=== PATIENT | female | born 1965 | race American Indian/Alaskan Native ===

== ENCOUNTER 2016-09-15 08:22 | Outpatient (CLI) | payer OTHER ==
--- NOTE | 2016-09-15 09:50 | Mammography Report ---
Bilateral mammogram: Compared to 09/14/15. CAD study utilized. Findings: There is adipose tissue tissue bilaterally. No mass or microcalcification. Benign calcification left breast. Impression: Benign findings. Annual followup recommended. BI-RADS CATEGORY: 2 = Benign ACR BI-RADS MAMMOGRAPHIC CODES: 0 = Needs additional imaging evaluation; 1 = Negative; 2 = Benign; 3 = Probably benign; 4 = Suspicious; 5 = Malignant; 6 = Known biopsy-proven malignancy COMMENT: 1. Dense breast tissue, i.e., adenosis, fibrocystic changes, etc., may obscure an underlying neoplasm. 2. Approximately 10% of cancers are not detected with mammography. 3. A negative mammography report should not delay biopsy if a clinically suspicious mass is present. COMMENT: Patient follow-up letters are generated in [employer].
== END 2016-09-15 08:23 | disposition home or self-care (01) ==
LOC: MAMMO 08:22
PROVIDERS: ATTEND Physician Assistant Medical
DX: Z12.31 Encounter for screening mammogram for malignant neoplasm of breast (principal)
CPT/HCPCS: 77067; G0202

== ENCOUNTER 2017-10-05 08:34 | Outpatient (CLI) | payer OTHER ==
--- NOTE | 2017-10-08 09:46 | Mammography Report ---
BILATERAL DIGITAL SCREENING MAMMOGRAM with CAD: 10/05/17 08:34:00 CLINICAL: Routine screening. COMPARISON:09/15/16 FINDINGS: The breasts are almost entirely fatty. No mass, architectural distortion or suspicious calcifications. IMPRESSION: No mammographic evidence of malignancy. BI-RADS CATEGORY: 1 - - Negative RECOMMENDATION: Routine mammographic screening in one year. COMMENT: Patient follow-up letters are generated by our [employer] application.
== END 2017-10-05 08:35 | disposition home or self-care (01) ==
LOC: MAMMO 08:34
PROVIDERS: ATTEND Physician Assistant Medical
DX: Z12.31 Encounter for screening mammogram for malignant neoplasm of breast (principal)
CPT/HCPCS: 77067

== ENCOUNTER 2020-11-08 08:15 | Outpatient (CLI) | payer OTHER ==
--- NOTE | 2020-11-08 10:45 | Mammography Report ---
BILATERAL DIGITAL DIAGNOSTIC MAMMOGRAM WITH CAD , 11/08/2020 LEFT LIMITED BREAST ULTRASOUND CLINICAL INFORMATION / INDICATION: LEFT BREAST PALPABLE MASS @ 3 OCLOCK TECHNIQUE: Digital bilateral mammographic imaging was performed. Spot compression and magnification v iews were obtained. This examination was interpreted with the benefit of Computer-Aided Detection (CA D) analysis. COMPARISON: Prior mammogram 12/04/2019, 10/05/2017 FINDINGS: Breast Density: The breasts are almost entirely fatty. MAMMOGRAPHIC FINDINGS: No dominant mass, suspicious calcifications, or architectural distortion in th e left breast. Spot compression views of the palpable area in the left breast, upper outer quadrant d oes not reveal any mammographic abnormality. The left mammogram is unchanged from older exams. However, there are new grouped calcifications in the right breast, upper outer quadrant, posterior de pth. Magnification views were obtained. Calcifications are heterogeneous in appearance span a distanc e of 18 mm. These are nonspecific in appearance. Further evaluation with stereotactic biopsy should b e performed. ULTRASOUND FINDINGS: Targeted ultrasound evaluation was performed of the area of interest. Sonograp hic evaluation of the left breast, upper outer quadrant, in the area of the palpable lump is unremark able. There is no solid mass, cyst, or suspicious area of shadowing identified. IMPRESSION: 1. No mammographic or sonographic abnormality is identified in the left breast. Specifically no abnor mality is identified to correspond to the complaint of a palpable left breast lump. Please correlate clinically. 2. Incidental finding of new grouped heterogeneous calcifications in the right breast, upper outer qu adrant. Recommend stereotactic biopsy for further evaluation. Follow up recommendation: Biopsy of right breast calcifications. BI-RADS Category 4: Suspicious for Malignancy. A "normal" or negative report should not discourage follow up or biopsy of a clinically significant f inding. A written summary of these findings will be mailed to the patient. The patient will be entered into a mammography reporting system which will generate a reminder letter for the patient's next appointmen t at the appropriate interval. According to the [employer], yearly mammograms are recommended starting at age 40 and continuing as long as a woman is in good health. Breast MRI is recommended for women with an yuniel roximately 20-25% or greater lifetime risk of breast cancer, including women with a strong family his tory of breast or ovarian cancer and women who have been treated for Hodgkin's disease. Signer Name: Lilly Nye MD Signed: 11/08/2020 10:41 AM Workstation Name: [id number]
== END 2020-11-08 08:16 | disposition home or self-care (01) ==
LOC: US 08:15
PROVIDERS: ATTEND Physician Assistant Medical
DX: N63.21 Unspecified lump in the left breast, upper outer quadrant (principal)
CPT/HCPCS: 77066

== ENCOUNTER 2021-02-21 05:53 | Day surgery (SDC) | payer OTHER ==
[2021-02-15 13:59] LABS: Hematocrit 37.6 % (30.3-42.9); Hemoglobin 12.2 gm/dl (10.1-14.3); Mean Corpuscular HGB Conc 32 % (30-34); Mean Corpuscular Volume 86 fl (79-97); Platelet Count 393 K/mm3 (140-440); Red Blood Count 4.39 M/mm3 (3.65-5.03)
[2021-02-21] MEDS ORDERED: ceFAZolin/STERILE WATER 2 GM/20 ML SYRINGE IV NR (06:00)
[2021-02-21] MEDS ORDERED: LACTATED RINGERS 1,000 ML IV SCH (06:30)
[2021-02-21] MEDS ORDERED: LIDOCAINE (1%) 10 MG/1 ML VIAL 20 ML MDV ONE ×2 (07:28→07:41)
[2021-02-21] MEDS ORDERED: METHYLENE BLUE 50 MG/10 ML AMP ONE (07:28)
[2021-02-21] MEDS ORDERED: SODIUM CHLORIDE P/F VIAL 10 ML 0 ML ONE (07:28)
[2021-02-21] MEDS ORDERED: BUPIVACAINE/PF (0.25%) 2.5 MG/ML 30 ML VIAL INFILTRATI ONE ×2 (07:31→09:03)
--- NOTE | 2021-02-21 07:31 | Anesthesia Day of Surgery ---
Anesthesia Day of Surgery - Day of Surgery Patient Examined: Yes Patient H&P Reviewed: Yes Patient is NPO: Yes
--- NOTE | 2021-02-21 07:31 | Anesthesia Consultation ---
Anesthesia Consult and Med Hx Date of service: 02/21/21 - Airway Anesthetic Teeth Evaluation: Good ROM Head & Neck: Adequate Mental/Hyoid Distance: Adequate Mallampati Class: Class III Intubation Access Assessment: Possibly Difficult - Pre-Operative Health Status ASA Pre-Surgery Classification: ASA2 Proposed Anesthetic Plan: General - Pulmonary Hx Asthma: Yes (USES INHALER PRN) Hx Sleep Apnea: No (snoring) - Central Nervous System Hx Psychiatric Problems: Yes (depression) - Other Systems Hx Alcohol Use: Yes (OCCASIONALLY) Hx Substance Use: No Hx Cancer: No (right breast mass) Hx Obesity: Yes (BMI 38.1)
[2021-02-21] MEDS ORDERED: MIDAZOLAM 2 MG/2 ML INJ IV NR (08:00)
[2021-02-21] MEDS ORDERED: SCOPOLAMINE TRANSDERMAL PATCH 72 HR TD NR (08:00)
[2021-02-21] MEDS ORDERED: FAMOTIDINE 20 MG/2 ML INJ IV NR (08:00)
[2021-02-21] MEDS ORDERED: HYDROmorphone 1 MG/1 ML INJ ONE (08:11)
[2021-02-21] MEDS ORDERED: propofoL 200 MG/20 ML VIAL IV ONE (08:11)
[2021-02-21] MEDS ORDERED: LIDOCAINE MPF (2%) 20 MG/1 ML VIAL 5 ML ONE (08:12)
--- NOTE | 2021-02-21 08:12 | Mammography Report ---
MAMMOGRAPHIC GUIDED RIGHT BREAST NEEDLE LOCALIZATION, 02/21/2021 CLINICAL INFORMATION / INDICATION: rt breast calcifications. COMPARISON: 12/10/2020 PROCEDURE: Risks, benefits and indications to the procedure were discussed with the patient. The patient agreed to proceed with both verbal and written consent. A timeout procedure was performed with 2 patient mike ntifiers. The breast was prepped with betadine in the usual sterile fashion. Approximately 5 cc of Lidocaine 1% was used for local anesthesia. Under direct digital mammographic guidance, a localization wire was p laced in satisfactory position with distal tip traversing the targeted lesion. Post-biopsy mammogram confirms satisfactory positioning of the localization wire. The wire was secured to the skin with a s terile dressing. The patient tolerated procedure without difficulty. No complications were encountered. IMPRESSION: 1. Satisfactory mammographic guided wire localization of the right breast. Signer Name: Don Knapp Jr, MD Signed: 02/21/2021 8:08 AM Workstation Name: [id number]
[2021-02-21] MEDS ORDERED: dexAMETHasone 20 MG/5 ML VIAL ONE (08:44)
[2021-02-21] MEDS ORDERED: ONDANSETRON 4 MG/2 ML INJ ONE (08:44)
[2021-02-21] MEDS ORDERED: LIDOCAINE (1%) 10 MG/1 ML VIAL 20 ML MDV INFILTRATI ONE (09:03)
[2021-02-21] MEDS ORDERED: WATER FOR IRRIG STERILE 1,500 ML BOTTLE IR ONE (09:03)
[2021-02-21] MEDS ORDERED: ONDANSETRON 4 MG/2 ML INJ IV PRN (09:30)
[2021-02-21] MEDS ORDERED: HYDROmorphone 1 MG/1 ML INJ IV PRN ×2 (09:30)
[2021-02-21] MEDS ORDERED: KETOROLAC 30 MG/1 ML INJ ONE (09:41)
--- NOTE | 2021-02-21 09:58 | Short Stay Summary ---
Short Stay Documentation Date of service: 02/21/21 - History H&P: obtained from office - Allergies and Medications Current Medications: Allergies No Known Allergies Allergy (Verified 02/04/21 16:31) Home Medications Medication Instructions Recorded Confirmed Last Taken Type Cetirizine HCl [Zyrtec 10mg tab] 10 mg PO PRN PRN 02/04/21 02/04/21 02/20/21 History Meclizine [Antivert] 25 mg PO PRN PRN 02/04/21 02/04/21 02/20/21 History Pravastatin [Pravachol] 20 mg PO QHS 02/04/21 02/04/21 02/20/21 History Sertraline [Zoloft] 50 mg PO QDAY 02/04/21 02/04/21 02/20/21 History Valacyclovir HCl [Valacyclovir] 500 mg PO PRN PRN 02/04/21 02/04/21 02/20/21 History Ibuprofen [Motrin 800 MG tab] 800 mg PO Q8HR PRN #12 tablet 02/21/21 Unknown Rx Active Medications Cefazolin Sodium (Cefazolin/Sterile Water 2 Gm/20 Ml Syringe) 2 gm IV PREOP NR Stop: 02/21/21 23:59 Famotidine (Famotidine 20 Mg/2 Ml Inj) 20 mg IV PREOP NR Stop: 02/21/21 21:00 Last Admin: 02/21/21 08:10 Dose: 20 mg Documented by: Hydromorphone HCl (Hydromorphone 1 Mg/1 Ml Inj) 0.25 mg IV Q10MIN PRN PRN Reason: Pain, Moderate (4-6) Stop: 02/21/21 23:00 Hydromorphone HCl (Hydromorphone 1 Mg/1 Ml Inj) 0.5 mg IV Q10MIN PRN PRN Reason: Pain , Severe (7-10) Stop: 02/21/21 23:00 Lactated Ringer's (Lactated Ringers) 1,000 mls @ 100 mls/hr IV DIRECT VIBHA Last Admin: 02/21/21 08:10 Dose: 100 mls/hr Documented by: Midazolam HCl (Midazolam 2 Mg/2 Ml Inj) 2 mg IV PREOP NR Stop: 02/21/21 23:59 Last Admin: 02/21/21 08:18 Dose: 2 mg Documented by: Ondansetron HCl (Ondansetron 4 Mg/2 Ml Inj) 4 mg IV ONCE PRN PRN Reason: Nausea And Vomiting Stop: 02/21/21 12:00 Scopolamine (Scopolamine Transdermal Patch 72 Hr) 1 each TD PREOP NR Stop: 02/21/21 21:00 Last Admin: 02/21/21 08:10 Dose: 1 each Documented by: - Brief post op/procedure progress note Date of procedure: 02/21/21 Pre-op diagnosis: Right breast mass upper outer quadrant Post-op diagnosis: same Procedure: Right breast mass needle localization excisional biopsy Anesthesia: GETA Findings: Right breast clip and wire present Surgeon: JAQUELINE SPENCE Estimated blood loss: minimal Pathology: list Specimen disposition: to lab Condition: stable - Disposition Condition at discharge: Good Disposition: 01 HOME / SELF CARE / HOMELESS Short Stay Discharge Plan Activity: other (no heavy lifting) Diet: regular Wound: keep clean and dry (wear breast binder) Follow up with: JAQUELINE SPENCE MD [Staff Physician] - 7 Days Prescriptions: Ibuprofen [Motrin 800 MG tab] 800 mg PO Q8HR PRN #12 tablet PRN Reason: Pain , Severe (7-10)
--- NOTE | 2021-02-21 10:10 | Operative Report ---
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 Right stereotactic biopsy performed with findings of an i ntraductal papilloma. Surgical recommendations were to proceed with excisional biopsy given low breast cancer risk association versus close observation given majority of papillomas with benign pathology. Patient wished to proceed with surgical excision. I agreed given family history of breast cancer. She wished to proceed with the above procedure. Procedure in detail: The patient was taken to radiology for wire placement for localization known area of concern. Patient was then taken to the operating room. Gen. anesthesia was administered. Right breast and axilla were prepped and draped in the normal sterile operative fashion. The wire was identified of the lateral breast around 9:00 position. Timeout was performed. Attention was then taken towards the right breast. Lateral breast incision was made around the 9:00 position with a 15 blade knife and dissection taken down to subcutaneous tissues. First began raising of the superior flap with removal of the wire from the skin with dissection take down posteriorly past the wire, followed by raising of the inferior flap, medial flap and lateral flap with all flaps taken down posteriorly past the wire. The breast area of concern was appropriately removed posteriorly with the aid of the Bovie cautery. The wire was not encountered. Specimen was marked and then sent to pathology and radiology; radiograph specimen with wire and clip present. Breast cavity was irrigated and hemostasis was obtained. Breast cavity was anesthesized with 1% lidocaine with quarter percent marcaine. The posterior deep breast tissues were approximated and closed using interrupted 3-0 Vicryl. The subcutaneous tissues were approximated and closed using interrupted 3-0 Vicryl followed by closing of the skin with a running 4-0 Monocryl and dermabond. The patient tolerated surgery very well and she was awaken from anesthesia without any complication and transported to PACU in good condition.
[2021-02-21 12:23] VITALS: BP 124/75
--- NOTE | 2021-02-21 13:44 | Mammography Report ---
RIGHT BREAST SPECIMEN RADIOGRAPH, 02/21/2021 INDICATION: Right breast target lesion: Right breast calcifications. COMPARISON: Needle localization performed earlier today FINDINGS: The previously localized target lesion is present in its entirety in the submitted specimen. The localization wire is present. IMPRESSION: 1. Radiographic evidence of satisfactory excision of the target lesion. Signer Name: Don Knapp Jr, MD Signed: 02/21/2021 1:40 PM Workstation Name: [id number]
--- NOTE | 2021-02-21 16:44 | Post Anesthesia Evaluation ---
- Post Anesthesia Evaluation Patient Participated: Yes Airway Patent: Yes Stable Respiratory Function: Yes Nausea/Vomiting: No Temp > 96.8F: Yes Pain Manageable: Yes Adequeate Hydration: Yes Anesthesia Complications: No Block Receding Appropriately: Not Applicable Patient on Ventilator: No
== END 2021-02-21 11:30 | disposition home or self-care (01) ==
LOC: OR 05:53
PROVIDERS: ATTEND Surgery
DX: R92.8 Other abnormal and inconclusive findings on diagnostic imaging of breast (principal); N60.81 Other benign mammary dysplasias of right breast; E78.00 Pure hypercholesterolemia, unspecified; E66.9 Obesity, unspecified; J45.909 Unspecified asthma, uncomplicated; Z79.899 Other long term (current) drug therapy; Z98.890 Other specified postprocedural states; Z80.3 Family history of malignant neoplasm of breast
CPT/HCPCS: 19125; 19281; 36415; 76098; 85027; 88307; A4648; J0690; J1100; J1170; J1885; J2250; J2405; J2704; J7120; U0003; Q9968